=== PATIENT | female | born 1980 | race Caucasian/White ===

== ENCOUNTER → 2023-08-10 | Day surgery (SDC) | payer BC ==
[2023-08-10 07:38] VITALS: RESP 16
[2023-08-10 09:41] VITALS: BP 127/79; PULSE 67; TEMP 98.2
--- NOTE | 2023-08-11 08:49 | MM ---
Date of Procedure: 08/10/23 Preoperative Diagnosis: Density right breast upper mid breast/status post ultrasound-guided core biopsy felt to be discordant Postoperative Diagnosis: Same Procedure(s) Performed: Right breast stereotactic core biopsy area of density Anesthesia: local Surgeon: Fabiana Nunez Pathology: other (Breast tissue) Disposition: same day Indications for Procedure: Density right breast upper mid breast felt to be discordant from ultrasound core biopsy, stereotactic core biopsy recommended Operative Findings: Radiograph of specimen reveals density in stereotactic specimen, questionable small calcifications Description of Procedure: Venus is a 42-year-old white female who is status post ultrasound-guided core biopsy of a right breast ultrasound abnormality. There was concern that the biopsy findings were discordant and stereo biopsy of an area of density in the right breast was recommended. The patient's x-rays were reviewed with Dr. Sams from radiology. An area of density was identified in the mid upper right breast. Stereotactic core biopsy of density was recommended. On examination the patient has very dense breast tissue asymmetric on the right to the left. The patient at risk and benefits of procedure discussed with her and she wished to proceed. The patient was brought to the stereotactic core biopsy room. She was positioned in the upright chair. A vacuum technician film was obtained and the area of concern was identified. The area was targeted. The breast was prepped using chlorhexidine. 20 mL of 1% lidocaine were used to anesthetize the area of concern. A 9-gauge vacuum-assisted core rotating biopsy needle was driven to the correct coordinates. Prefire film was obtained. The needle was noted to be in the correct location. The needle was fired. Posterior film was obtained. The needle was noted to be in the correct location. 13 core biopsy specimens were obtained. Radiograph of the specimen revealed density in the specimen as well as questionable microcalcifications. The targeting have been done for a density and not forced microcalcifications specifically. A secure metopic clip was placed. Post radiograph will be obtained to ascertain that the clip was in the right location. Depending on the results of the biopsy further tissue may be necessary secondary to the changes noted on physical exam in the area of concern, or consideration of a breast MRI. VANDANA
== END ==
LOC: RADMAMWWP 07:19
PROVIDERS: ATTEND Surgery
DX: N60.21 Fibroadenosis of right breast (principal)
CPT/HCPCS: 88305; 19081; A4648; J2001

== ENCOUNTER → 2023-08-10 | Outpatient (CLI) | payer BC ==
--- NOTE | 2023-08-10 08:16 | P.GSHP ---
History of Present Illness H&P Date: 08/10/23 Chief Complaint: Radiographic abnormality right breast Venus is a 42-year-old female seen in consultation for Diana Sutherland regarding the radiographic abnormality in her right breast. On she underwent a bilateral mammogram this revealed a focal high-density asymmetry in the right breast centrally anterior to middle depth. No lesions were noted of concern in the left breast. Spot compression diagnostic mammogram of the right breast was recommended. This was performed on [id number]. This revealed a new asymmetric density in the upper outer anterior right breast this partially dispersed but remained present and an ultrasound was recommended. An ultrasound was performed on the same date. This revealed a 1.2 x 1.7 cm lesion in the 10 o'clock position which appeared to correlate with the asymmetric density by mammogram. An ultrasound-guided core biopsy was recommended. This was performed on [id number] pathology was benign breast tissue with abundant fibrous stroma. There was concern that this was non-concordant and a stereo core biopsy of the area of density was recommended. The patient does not feel any lumps masses or nodules of concern in her breast. This was a routine mammogram. Prior to this she had not had any surgery or biopsies on her breasts. She is not complaining of any recent trauma or infection in the breast. She is not complaining of any nipple discharge skin changes or pain in the breast. Caffeine: 3 cups/day nicotine: 1 PPD since 1994 chocolate: occasional BCP: 10 years in the past hormones: none Family history: maternal grandmother: colon cancer maternal aunt: lung cancer paternal uncle: ? type of cancer Hormonal History: menarche: 11 G0 periods regular; LMP 2 days ago Surgical history: none Medical HItory: none Social History: nicotine: 1 PPD/ since 1994 alcohol: daily drugs: none - Constitutional Constitutional: Denies chills, Denies fever - EENT Eyes: denies blurred vision, denies pain Ears: deny: decreased hearing, tinnitus Ears, nose, mouth and throat: Denies headache, Denies sore throat - Breasts Breasts: bilateral: as per HPI - Cardiovascular Cardiovascular: Denies chest pain, Denies shortness of breath - Respiratory Respiratory: Reports as per HPI - Gastrointestinal Gastrointestinal: Denies abdominal pain, Denies diarrhea, Denies nausea, Denies vomiting - Genitourinary (Female) Genitourinary: Denies dysuria, Denies hematuria - Menstruation Menstruation: Reports period normal - Musculoskeletal Musculoskeletal: Denies myalgias - Integumentary Integumentary: Denies pruritus, Denies rash - Neurological Neurological: Denies numbness, Denies weakness - Psychiatric Psychiatric: Reports depression, Denies anxiety - Endocrine Endocrine: Denies fatigue, Denies weight change - Hematologic/Lymphatic Comment: none - Allergic/Immunologic Allergic/Immunologic: Reports as per HPI Past Medical History Past Medical History: No Reported History History of Any Multi-Drug Resistant Organisms: None Reported Past Surgical History: No Surgical Hx Reported Past Anesthesia/Blood Transfusion Reactions: No Reported Reaction Past Psychological History: Anxiety Additional Psychological History / Comment(s): bupropion 150mg daily Smoking Status: Current every day smoker Past Alcohol Use History: Daily Additional Past Alcohol Use History / Comment(s): 2-3 beers daily Past Drug Use History: None Reported Medications and Allergies Home Medications Medication Instructions Recorded Confirmed Type buPROPion XL [Wellbutrin XL] 150 mg PO DAILY 08/02/23 08/10/23 History Allergies Allergy/AdvReac Type Severity Reaction Status Date / Time No Known Allergies Allergy Verified 08/10/23 07:25 Surgical - Exam - General no distress - Eyes normal ocular movement - Neck trachea midline - Respiratory normal respiratory effort, clear to auscultation - Cardiovascular Rhythm: regular Heart Sounds: normal: S1, S2 - Abdomen Abdomen: soft, non tender, no guarding, no rigid, no rebound - Integumentary normal turgor - Neurologic no disoriented, no combative - Musculoskeletal normal gait - Psychiatric oriented to time, oriented to person, oriented to place, speech is normal, memory intact Breast Exam: BRA: 36B Inspection: bilateral grade 1 ptosis palpation: right breast: Multiple positional exam dense tissue particularly in the retroareolar area, no discrete mass, fibrocystic changes this is asymmetric to the left side which is not as dense particularly in the 12 o'clock position Right axilla: No adenopathy of concern Left breast multi-positional exam no dominant masses or nodules of concern Left axilla: No adenopathy of concern Results Mammogram and ultrasound personally reviewed Assessment and Plan Assessment: Impression: Radiographic and clinical abnormality right breast Ultrasound-guided core biopsy discordant Plan: Stereo core biopsy area of density right breast If stereo core biopsy is benign would consider an MRI for questionable needle local excisional biopsy Risk and benefits of the procedure discussed with the patient. Risks include but are not limited to bleeding, infection, reaction to the anesthetic. If the tissue biopsy with discordant and further tissue acquisition may be necessary. CC: Diana Sutherland
--- NOTE | 2023-08-10 09:07 | P.PCN ---
Date of Procedure: 08/10/23 Preoperative Diagnosis: Density right breast upper mid breast/status post ultrasound-guided core biopsy felt to be discordant Postoperative Diagnosis: Same Procedure(s) Performed: Right breast stereotactic core biopsy area of density Anesthesia: local Surgeon: Fabiana Nunez Pathology: other (Breast tissue) Disposition: same day Indications for Procedure: Density right breast upper mid breast felt to be discordant from ultrasound core biopsy, stereotactic core biopsy recommended Operative Findings: Radiograph of specimen reveals density in stereotactic specimen, questionable small calcifications Description of Procedure: Venus is a 42-year-old white female who is status post ultrasound-guided core biopsy of a right breast ultrasound abnormality. There was concern that the biopsy findings were discordant and stereo biopsy of an area of density in the right breast was recommended. The patient's x-rays were reviewed with Dr. Sams from radiology. An area of density was identified in the mid upper right breast. Stereotactic core biopsy of density was recommended. On examination the patient has very dense breast tissue asymmetric on the right to the left. The patient at risk and benefits of procedure discussed with her and she wished to proceed. The patient was brought to the stereotactic core biopsy room. She was positioned in the upright chair. A lawn mower film was obtained and the area of concern was identified. The area was targeted. The breast was prepped using chlorhexidine. 20 mL of 1% lidocaine were used to anesthetize the area of concern. A 9-gauge vacuum-assisted core rotating biopsy needle was driven to the correct coordinates. Prefire film was obtained. The needle was noted to be in the correct location. The needle was fired. Posterior film was obtained. The needle was noted to be in the correct location. 13 core biopsy specimens were obtained. Radiograph of the specimen revealed density in the specimen as well as questionable microcalcifications. The targeting have been done for a density and not forced microcalcifications specifically. A secure metopic clip was placed. Post radiograph will be obtained to ascertain that the clip was in the right location. Depending on the results of the biopsy further tissue may be necessary secondary to the changes noted on physical exam in the area of concern, or consideration of a breast MRI.
== END ==
LOC: WWCWWP 07:21
PROVIDERS: ATTEND Surgery
DX: R92.8 Other abnormal and inconclusive findings on diagnostic imaging of breast (principal); N64.89 Other specified disorders of breast; R92.30 Dense breasts, unspecified; F17.210 Nicotine dependence, cigarettes, uncomplicated; F41.9 Anxiety disorder, unspecified

== ENCOUNTER → 2023-08-17 | Outpatient (CLI) | payer BC ==
[2023-08-17 15:26] VITALS: BP 129/81; PULSE 95; RESP 17; TEMP 98.7
--- NOTE | 2023-08-17 15:29 | P.PN ---
Subjective Progress Note Date: 08/17/23 Radiographic abnormality right breast Venus is a 42-year-old female seen in consultation for Diana Sutherland regarding the radiographic abnormality in her right breast. On she underwent a bilateral mammogram this revealed a focal high-density asymmetry in the right breast centrally anterior to middle depth. No lesions were noted of concern in the left breast. Spot compression diagnostic mammogram of the right breast was recommended. This was performed on [id number]. This revealed a new asymmetric density in the upper outer anterior right breast this partially dispersed but remained present and an ultrasound was recommended. An ultrasound was performed on the same date. This revealed a 1.2 x 1.7 cm lesion in the 10 o'clock position which appeared to correlate with the asymmetric density by mammogram. An ultrasound-guided core biopsy was recommended. This was performed on [id number] pathology was benign breast tissue with abundant fibrous stroma. There was concern that this was non-concordant and a stereo core biopsy of the area of density was recommended. The patient does not feel any lumps masses or nodules of concern in her breast. This was a routine mammogram. Prior to this she had not had any surgery or biopsies on her breasts. She is not complaining of any recent trauma or infection in the breast. She is not complaining of any nipple discharge skin changes or pain in the breast. Stero biopsy 08-10-23 benign/ concern if this is concordant Caffeine: 3 cups/day nicotine: 1 PPD since 1994 chocolate: occasional BCP: 10 years in the past hormones: none Family history: maternal grandmother: colon cancer maternal aunt: lung cancer paternal uncle: ? type of cancer Hormonal History: menarche: 11 G0 periods regular; LMP 2 days ago Surgical history: none Medical HItory: none Social History: nicotine: 1 PPD/ since 1994 alcohol: daily drugs: none - Constitutional Constitutional: Denies chills, Denies fever - EENT Eyes: denies blurred vision, denies pain Ears: deny: decreased hearing, tinnitus Ears, nose, mouth and throat: Denies headache, Denies sore throat - Breasts Breasts: bilateral: as per HPI - Cardiovascular Cardiovascular: Denies chest pain, Denies shortness of breath - Respiratory Respiratory: Reports as per HPI - Gastrointestinal Gastrointestinal: Denies abdominal pain, Denies diarrhea, Denies nausea, Denies vomiting - Genitourinary (Female) Genitourinary: Denies dysuria, Denies hematuria - Menstruation Menstruation: Reports period normal - Musculoskeletal Musculoskeletal: Denies myalgias - Integumentary Integumentary: Denies pruritus, Denies rash - Neurological Neurological: Denies numbness, Denies weakness - Psychiatric Psychiatric: Reports depression, Denies anxiety - Endocrine Endocrine: Denies fatigue, Denies weight change - Hematologic/Lymphatic Comment: none - Allergic/Immunologic Allergic/Immunologic: Reports as per HPI Past Medical History Past Medical History: No Reported History History of Any Multi-Drug Resistant Organisms: None Reported Past Surgical History: No Surgical Hx Reported Past Anesthesia/Blood Transfusion Reactions: No Reported Reaction Past Psychological History: Anxiety Additional Psychological History / Comment(s): bupropion 150mg daily Smoking Status: Current every day smoker Past Alcohol Use History: Daily Additional Past Alcohol Use History / Comment(s): 2-3 beers daily Past Drug Use History: None Reported Medications and Allergies Home Medications Medication Instructions Recorded Confirmed Type buPROPion XL [Wellbutrin XL] 150 mg PO DAILY 08/02/23 08/10/23 History Allergies Allergy/AdvReac Type Severity Reaction Status Date / Time No Known Allergies Allergy Verified 08/10/23 07:25 Objective - Constitutional General appearance: Present: cooperative - EENT Eyes: Present: EOMI ENT: Present: hearing grossly normal - Neck Neck: Present: normal ROM - Respiratory Respiratory: bilateral: CTA - Cardiovascular Heart sounds: normal: S1, S2 - Integumentary Integumentary: Present: normal turgor - Psychiatric Psychiatric: Present: A&O x's 3, appropriate affect, intact judgment & insight - Additional findings Additional findings: Breast Exam: BRA: 36B Inspection: bilateral grade 1 ptosis palpation: right breast: Ecchymosis and postop changes in the retroareolar region Right axilla: No adenopathy of concern Left breast multi-positional exam no dominant masses or nodules of concern from her last visit Left axilla: No adenopathy of concern from her last visit Assessment and Plan Assessment: Impression: Stereotactic core biopsy right breast stone stromal fibrosis and fibrocystic change, focal microcalcification and focal sclerosing adenosis Fibrosis has focal features 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 Sams on her last visit, if this came back benign there was recommendation. Breast MRI The patient and her would prefer not to have this done however we will see if insurance will cover it and depending on that they will decide on whether or not to do the MRI We've also discussed the possibility of open surgical resection and at this time they would like to avoid this if possible If they forego the MRI she was seen again in 4 months for clinical examination CC: Diana Sutherland
== END ==
LOC: WWCWWP 15:10
PROVIDERS: ATTEND Surgery
DX: N60.11 Diffuse cystic mastopathy of right breast (principal); N60.21 Fibroadenosis of right breast; N64.89 Other specified disorders of breast; R92.0 Mammographic microcalcification found on diagnostic imaging of breast

== ENCOUNTER → 2023-12-01 | Outpatient (CLI) | payer BC ==
--- NOTE | 2023-12-01 15:35 | P.PN ---
Subjective Progress Note Date: 12/01/23 Principal diagnosis: abnormal right breast mammogram and ultrasound 08/10/23 Chief Complaint: Radiographic abnormality right breast Venus is a 42-year-old female seen in consultation for Diana Sutherland regarding the radiographic abnormality in her right breast. On she underwent a bilateral mammogram this revealed a focal high-density asymmetry in the right breast centrally anterior to middle depth. No lesions were noted of concern in the left breast. Spot compression diagnostic mammogram of the right breast was recommended. This was performed on 11130902. This revealed a new asymmetric density in the upper outer anterior right breast this partially dispersed but remained present and an ultrasound was recommended. An ultrasound was performed on the same date. This revealed a 1.2 x 1.7 cm lesion in the 10 o'clock position which appeared to correlate with the asymmetric density by mammogram. An ultrasound-guided core biopsy was recommended. This was performed on [id number] pathology was benign breast tissue with abundant fibrous stroma. There was concern that this was non-concordant and a stereo core biopsy of the area of density was recommended. The patient did not feel any lumps masses or nodules of concern in her breast. This was fund on a routine mammogram. Prior to this she had not had any surgery or biopsies on her breasts. She was not complaining of any recent trauma or infection in the breast. She was not complaining of any nipple discharge skin changes or pain in the breast. A nodule was biopsied via stero biopsy on 08-10-23, after review with Dr. Haskins there was concern it was not the same area biopsied via ultrasound. It was also benign. WE attempted to obtain an MRI to further evaluate the breast which was denied by insurance. The patient is not complaining any changes in her breast. She has not noted any new lumps masses or nodules of concern in either breast. Caffeine: 3 cups/day nicotine: 1 PPD since 1994 chocolate: occasional BCP: 10 years in the past hormones: none Family history: maternal grandmother: colon cancer maternal aunt: lung cancer paternal uncle: ? type of cancer Hormonal History: menarche: 11 G0 periods regular; LMP 2 days ago Surgical history: none Medical HItory: none Social History: nicotine: 1 PPD/ since 1994 alcohol: daily drugs: none - Constitutional Constitutional: Denies chills, Denies fever - EENT Eyes: denies blurred vision, denies pain Ears: deny: decreased hearing, tinnitus Ears, nose, mouth and throat: Denies headache, Denies sore throat - Breasts Breasts: bilateral: as per HPI - Cardiovascular Cardiovascular: Denies chest pain, Denies shortness of breath - Respiratory Respiratory: Reports as per HPI - Gastrointestinal Gastrointestinal: Denies abdominal pain, Denies diarrhea, Denies nausea, Denies vomiting - Genitourinary (Female) Genitourinary: Denies dysuria, Denies hematuria - Menstruation Menstruation: Reports period normal - Musculoskeletal Musculoskeletal: Denies myalgias - Integumentary Integumentary: Denies pruritus, Denies rash - Neurological Neurological: Denies numbness, Denies weakness - Psychiatric Psychiatric: Reports depression, Denies anxiety - Endocrine Endocrine: Denies fatigue, Denies weight change - Hematologic/Lymphatic Comment: none - Allergic/Immunologic Allergic/Immunologic: Reports as per HPI Past Medical History Past Medical History: No Reported History History of Any Multi-Drug Resistant Organisms: None Reported Past Surgical History: No Surgical Hx Reported Past Anesthesia/Blood Transfusion Reactions: No Reported Reaction Past Psychological History: Anxiety Additional Psychological History / Comment(s): bupropion 150mg daily Smoking Status: Current every day smoker Past Alcohol Use History: Daily Additional Past Alcohol Use History / Comment(s): 2-3 beers daily Past Drug Use History: None Reported Medications and Allergies Home Medications Medication Instructions Recorded Confirmed Type buPROPion XL [Wellbutrin XL] 150 mg PO DAILY 08/02/23 08/10/23 History Allergies Allergy/AdvReac Type Severity Reaction Status Date / Time No Known Allergies Allergy Verified 08/10/23 07:25 Objective - Constitutional General appearance: Present: cooperative - EENT Eyes: Present: EOMI ENT: Present: hearing grossly normal - Neck Neck: Present: normal ROM - Respiratory Respiratory: bilateral: CTA - Cardiovascular Heart sounds: normal: S1, S2 - Gastrointestinal General gastrointestinal: Present: soft - Integumentary Integumentary: Present: normal turgor - Musculoskeletal Musculoskeletal: Present: gait normal - Psychiatric Psychiatric: Present: A&O x's 3, appropriate affect, intact judgment & insight - Additional findings Additional findings: Breast Exam: BRA: 36B Inspection: bilateral grade 1 ptosis; prominent hair follicle right axilla palpation: right breast: Multi positional exam dense tissue particularly in the retroareolar area, no discrete mass, fibrocystic changes this is asymmetric to the left side which is not as dense particularly in the 12 o'clock position Right axilla: No adenopathy of concern Left breast multi-positional exam no dominant masses or nodules of concern Left axilla: No adenopathy of concern Assessment and Plan Assessment: Impression: Radiographic and clinical abnormality right breast ? stero and Ultrasound-guided core biopsy discordant Plan: repeat right breast ultrasound and mammogram; These are done Will continue to follow patient conservatively, after review with Dr. Haskins of radiographs CC: Diana Sutherland
[2023-12-01 16:08] VITALS: BP 132/80; PULSE 73; RESP 16; TEMP 98.4
== END ==
LOC: WWCWWP 14:44
PROVIDERS: ATTEND Surgery
DX: R92.8 Other abnormal and inconclusive findings on diagnostic imaging of breast (principal); N64.89 Other specified disorders of breast; F17.210 Nicotine dependence, cigarettes, uncomplicated

== ENCOUNTER → 2023-12-22 | Outpatient (CLI) | payer BC ==
--- NOTE | 2023-12-22 14:23 | P.PN ---
Subjective Progress Note Date: 12/22/23 12/01/23 Principal diagnosis: abnormal right breast mammogram and ultrasound 08/10/23 Chief Complaint: Radiographic abnormality right breast eVnus is a 42-year-old female seen in consultation for Diana Sutherland regarding the radiographic abnormality in her right breast. On she underwent a bilateral mammogram this revealed a focal high-density asymmetry in the right breast centrally anterior to middle depth. No lesions were noted of concern in the left breast. Spot compression diagnostic mammogram of the right breast was recommended. This was performed on [id number]. This revealed a new asymmetric density in the upper outer anterior right breast this partially dispersed but remained present and an ultrasound was recommended. An ultrasound was performed on the same date. This revealed a 1.2 x 1.7 cm lesion in the 10 o'clock position which appeared to correlate with the asymmetric density by mammogram. An ultrasound-guided core biopsy was recommended. This was performed on [id number] pathology was benign breast tissue with abundant fibrous stroma. There was concern that this was non-concordant and a stereo core biopsy of the area of density was recommended. The patient did not feel any lumps masses or nodules of concern in her breast. This was fund on a routine mammogram. Prior to this she had not had any surgery or biopsies on her breasts. She was not complaining of any recent trauma or infection in the breast. She was not complaining of any nipple discharge skin changes or pain in the breast. A nodule was biopsied via stero biopsy on 08-10-23, after review with Dr. Haskins there was concern it was not the same area biopsied via ultrasound. It was also benign. We attempted to obtain an MRI to further evaluate the breast which was denied by insurance. The patient is not complaining any changes in her breast. She has not noted any new lumps masses or nodules of concern in either breast. Personally reviewed and discussed with Dr. Sams Bilateral repeat mammogram on 12-22-23 no new lesions of concern, ultrasound pending She does not feel any new lumps masses or nodules of concern. Caffeine: 3 cups/day nicotine: 1 PPD since 1994 chocolate: occasional BCP: 10 years in the past hormones: none Family history: maternal grandmother: colon cancer maternal aunt: lung cancer paternal uncle: ? type of cancer Hormonal History: menarche: 11 G0 periods regular; LMP 2 days ago Surgical history: none Medical History: none Social History: nicotine: 1 PPD/ since 1994 alcohol: daily drugs: none - Constitutional Constitutional: Denies chills, Denies fever - EENT Eyes: denies blurred vision, denies pain Ears: deny: decreased hearing, tinnitus Ears, nose, mouth and throat: Denies headache, Denies sore throat - Breasts Breasts: bilateral: as per HPI - Cardiovascular Cardiovascular: Denies chest pain, Denies shortness of breath - Respiratory Respiratory: Reports as per HPI - Gastrointestinal Gastrointestinal: Denies abdominal pain, Denies diarrhea, Denies nausea, Denies vomiting - Genitourinary (Female) Genitourinary: Denies dysuria, Denies hematuria - Menstruation Menstruation: Reports period normal - Musculoskeletal Musculoskeletal: Denies myalgias - Integumentary Integumentary: Denies pruritus, Denies rash - Neurological Neurological: Denies numbness, Denies weakness - Psychiatric Psychiatric: Reports depression, Denies anxiety - Endocrine Endocrine: Denies fatigue, Denies weight change - Hematologic/Lymphatic Comment: none - Allergic/Immunologic Allergic/Immunologic: Reports as per HPI Past Medical History Past Medical History: No Reported History History of Any Multi-Drug Resistant Organisms: None Reported Past Surgical History: No Surgical Hx Reported Past Anesthesia/Blood Transfusion Reactions: No Reported Reaction Past Psychological History: Anxiety Additional Psychological History / Comment(s): bupropion 150mg daily Smoking Status: Current every day smoker Past Alcohol Use History: Daily Additional Past Alcohol Use History / Comment(s): 2-3 beers daily Past Drug Use History: None Reported Medications and Allergies Home Medications Medication Instructions Recorded Confirmed Type buPROPion XL [Wellbutrin XL] 150 mg PO DAILY 08/02/23 08/10/23 History Allergies Allergy/AdvReac Type Severity Reaction Status Date / Time No Known Allergies Allergy Verified 08/10/23 07:25 Objective - Vital Signs Vital signs: Vital Signs Temp 98.1 F 12/22/23 13:47 Pulse 68 12/22/23 13:47 Resp 16 12/22/23 13:47 BP 127/68 12/22/23 13:47 Pulse Ox 95 12/22/23 13:47 FiO2 Intake & Output 12/21/23 12/22/23 12/22/23 18:59 06:59 18:59 Weight 65.771 kg - Constitutional General appearance: Present: cooperative - EENT Eyes: Present: EOMI ENT: Present: hearing grossly normal - Neck Neck: Present: normal ROM - Respiratory Respiratory: bilateral: CTA - Cardiovascular Heart sounds: normal: S1, S2 - Integumentary Integumentary: Present: normal turgor - Musculoskeletal Musculoskeletal: Present: gait normal - Psychiatric Psychiatric: Present: A&O x's 3, appropriate affect, intact judgment & insight - Additional findings Additional findings: Breast Exam: BRA: 36B Inspection: bilateral grade 1 ptosis; prominent hair follicle right axilla resolved palpation: right breast: Multi positional exam dense tissue, fibrocystic changes, masses or nodules of concern Right axilla: No adenopathy of concern, shoddy adenopathy Left breast multi-positional exam no dominant masses or nodules of concern Left axilla: No adenopathy of concern Assessment and Plan Assessment: Impression: Patient's status post core biopsy of 2 areas in the right breast 1 by ultrasound and 1 by stereo both were benign Recent bilateral mammogram no lesions of concern Fibrocystic breast changes Patient does not note any new lumps masses or nodules of concern in either breast No discrete lumps or masses on physical exam in either breast Plan: Ultrasound right breast to confirm there is nothing of concern if this is negative most likely bilateral mammogram in 1 year with examination at that time If patient notes anything of concern she will call us sooner CC: Diana Sutherland
[2023-12-22 14:58] VITALS: BP 127/68; PULSE 68; RESP 16; TEMP 98.1
--- NOTE | 2023-12-22 16:40 | MM ---
Reason for Exam: Follow-up at short interval from prior study. Last screening mammogram was performed 6 month(s) ago. Patient History: Menarche at age 11. Patient has no children. 06/29/2023, Benign US biopsy breast VAD RT on the right side. 08/10/2023, Benign MG stereo VAD BX RT on the right side. Risk Values: Zenia 5 year model risk: 2.3%. NCI Lifetime model risk: 16.7%. Prior Study Comparison: 06/01/2023 Bilateral Screening Mammogram, Unknown. 06/13/2023 Right Diagnostic Mammogram, Unknown. 06/29/2023 Right Diagnostic Mammogram, Unknown. Tissue Density: Right: There are scattered areas of fibroglandular density. Findings: Analyzed By CAD. The pattern is stable. Postbiopsy markers are present within the anterior right breast. No suspicious groups of microcalcifications, spiculated or lobular masses, architectural distortion or other secondary signs of malignancy are mammographically apparent. Overall Assessment: Benign, BI-RAD 2 Management: Screening Mammogram of both breasts in 6 months. A negative mammogram report should not preclude additional follow up of suspicious palpable abnormalities. Patient should continue monthly self breast exam. A clinical breast exam by your physician is recommended on an annual basis and results should be correlated with mammographic findings. Note on Zenia scores and lifetime risk: 1. A Zenia score greater than 3% is considered moderate risk. If this is the case, consider specialist referral to assess eligibility for a risk reducing agent. 2. If overall lifetime risk for the development of breast cancer is 20% or higher, the patient may qualify for future screening with alternating mammogram and breast MRI. Electronically signed and approved by: Jerry Sams D.O. Radiologis
== END ==
LOC: WWCWWP 13:01
PROVIDERS: ATTEND Surgery
DX: Z12.31 Encounter for screening mammogram for malignant neoplasm of breast (principal); N60.11 Diffuse cystic mastopathy of right breast; N63.10 Unspecified lump in the right breast, unspecified quadrant; F17.210 Nicotine dependence, cigarettes, uncomplicated; N64.89 Other specified disorders of breast
CPT/HCPCS: 77061; 77065